=== PATIENT | male | born 1985 | race Hispanic/Latino ===

== ENCOUNTER 2016-11-10 16:26 | Emergency (ER) | payer SELFPAY ==
[2016-11-10 17:15] VITALS: BMI 31.1
[2016-11-10 17:22] VITALS: RESP 16; TEMP 98.2
[2016-11-10] MEDS ORDERED: Oxycodone/Acetaminophen 5/325 mg Tab PO STA (17:25)
--- NOTE | 2016-11-10 19:13 | ED PDOC ---
Arrival/HPI - General Chief Complaint: Back Pain Time Seen by Provider: 11/10/16 17:25 Historian: Patient - History of Present Illness Narrative History of Present Illness (Text): 11/10/16 31-year-old male presents today with a 3 day history of right-sided neck pain. Patient states 3 days ago he woke up with pain to the right side of the neck. Patient states he took a Motrin but the pain did not resolve. Patient states over the past few days the neck pain has been worsening to the point where he is unable to turn his head without pain. He denies chest pain. Denies recent trauma or injury. 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 No vomiting or diarrhea. Patient denies numbness weakness or tingling in the extremities. No other complaints Past Medical History - Provider Review Nursing Documentation Reviewed: Yes - Travel History Have you recently traveled outside [place] w/in the past 3 mons?: No - Infectious Disease Hx of Infectious Diseases: None - Tetanus Immunization Tetanus Immunization: Unknown - Cardiac Hx Cardiac Disorders: No - Pulmonary Hx Respiratory Disorders: Yes Hx Asthma: Yes - Neurological Hx Neurological Disorder: No - HEENT Hx HEENT Disorder: No - Renal Hx Renal Disorder: No - Endocrine/Metabolic Hx Endocrine Disorders: No - Hematological/Oncological Hx Blood Disorders: No - Integumentary Hx Dermatological Disorder: No - Musculoskeletal/Rheumatological Hx Musculoskeletal Disorders: No - Gastrointestinal Hx Gastrointestinal Disorders: No - Genitourinary/Gynecological Hx Genitourinary Disorders: No - Psychiatric Hx Psychophysiologic Disorder: Yes (PTSD) Hx Anxiety: Yes Hx Post Traumatic Stress Disorder: Yes Hx Substance Use: No (Steroids) Family/Social History - Physician Review Nursing Documentation Reviewed: Yes Family/Social History: Unknown Family HX Smoking Status: Never Smoked Hx Alcohol Use: Yes Frequency of alcohol use: Socially Hx Substance Use: No (Steroids) Allergies/Home Meds Allergies/Adverse Reactions: Allergies No Known Allergies Allergy (Verified 11/10/16 17:15) Home Medications: Home Meds Medication Instructions Recorded Confirmed clonazePAM [Klonopin] 0.25 mg PO PRN PRN 07/27/16 11/10/16 Review of Systems - Review of Systems Constitutional: absent: Fatigue, Fevers ENT: absent: Sinus Congestion Respiratory: absent: SOB, Cough Cardiovascular: absent: Chest Pain, Palpitations Gastrointestinal: absent: Abdominal Pain, Nausea, Vomiting Genitourinary Male: absent: Dysuria, Frequency Musculoskeletal: Back Pain, Neck Pain. absent: Arthralgias Skin: absent: Rash, Pruritis Neurological: absent: Headache, Dizziness Physical Exam Vital Signs Reviewed: Yes Vital Signs Temp Pulse Resp BP Pulse Ox 11/10/16 19:26 78 16 126/80 96 11/10/16 17:51 97/52 L 11/10/16 17:16 98.2 F 77 16 97 Temperature: Afebrile Blood Pressure: Normal Pulse: Regular Respiratory Rate: Normal Appearance: Positive for: Well-Appearing, Non-Toxic, Uncomfortable Pain Distress: None Mental Status: Positive for: Alert and Oriented X 3 - Systems Exam Head: Present: Atraumatic Mouth: Present: Moist Mucous Membranes Neck: Present: Paraspinal Tenderness (Positive right sided paraspinal tenderness and right-sided trapezius tenderness. ). No: Normal Range of Motion , Meningeal Signs, MIDLINE TENDERNESS Respiratory/Chest: Present: Clear to Auscultation, Good Air Exchange. No: Respiratory Distress, Accessory Muscle Use Cardiovascular: Present: Regular Rate and Rhythm, Normal S1, S2. No: Murmurs Upper Extremity: Present: Normal Inspection, Normal ROM Neurological: Present: GCS=15, Motor Func Grossly Intact, Normal Sensory Function, Gait Normal Skin: Present: Warm, Dry, Normal Color. No: Rashes Psychiatric: Present: Alert, Oriented x 3 Medical Decision Making ED Course and Treatment: 11/10/16 19:14 Patient nontoxic well-appearing in no distress with stable vital signs. Toradol Flexeril and Percocet given Patient reassessment: Feeling better with medications ambulating with a steady gait. Patient turning neck much better. Muscle strength 5 out of 5 bilaterally. I have looked the patient up in the [employer] aware website. I have advised the patient that Percocet can cause addiction/drowsiness. I advised to followup with the orthopedist within the next 2 days. Return if symptoms worsen persist or new symptoms develop Patient verbalizes understanding of discharge instructions and need for immediate followup. Impression: Neck pain, strain Motrin every 6 hours as needed for pain Flexeril one tablet every 8 hours as needed for muscle spasms: May cause drowsiness percocet:one tablet every 6 hours as needed for moderate to severe pain: May cause drowsiness Followup with the orthopedist within the next 2 days Followup with primary care physician within the next 2 days Return if symptoms worsen persist or if new symptoms develop - Medication Orders Current Medication Orders: Discontinued Medications Cyclobenzaprine HCl (Flexeril) 10 mg PO STAT STA Stop: 11/10/16 17:26 Last Admin: 11/10/16 17:40 Dose: 10 MG Ketorolac Tromethamine (Toradol) 60 mg IM STAT STA Stop: 11/10/16 17:26 Last Admin: 11/10/16 17:40 Dose: 60 MG IM Administration Charges Document 11/10/16 17:40 MD (Rec: 11/10/16 17:40 [id number]) Charges for Administration # of IM Administrations 1 Oxycodone/Acetaminophen (Percocet 5/325 Mg Tab) 1 tab PO STAT STA Stop: 11/10/16 17:26 Last Admin: 11/10/16 17:40 Dose: 1 TAB Disposition/Present on Arrival - Present on Arrival Any Indicators Present on Arrival: No History of DVT/PE: No History of Uncontrolled Diabetes: No Urinary Catheter: No History of Decub. Ulcer: No History Surgical Site Infection Following: None - Disposition Have Diagnosis and Disposition been Completed?: Yes Diagnosis: Neck pain Disposition: HOME/ ROUTINE Disposition Time: 18:30 Patient Plan: Discharge Condition: GOOD Discharge Instructions (ExitCare): Muscle Spasm (ED) Additional Instructions: Motrin every 6 hours as needed for pain Flexeril one tablet every 8 hours as needed for muscle spasms: May cause drowsiness Percocet; one tablet every 6 hours as needed for moderate to severe pain: May cause drowsiness Followup with the orthopedist within the next 2 days Followup with primary care physician within the next 2 days Return if symptoms worsen persist or if new symptoms develop Prescriptions: Cyclobenzaprine [Cyclobenzaprine HCl] 10 mg PO Q8 #10 tab Ibuprofen [Motrin] 600 mg PO Q6H PRN #20 tab PRN Reason: pain/fever reduction oxyCODONE/Acetaminophen [Percocet 5/325 mg Tab] 1 tab PO Q6H PRN #10 tab PRN Reason: moderate to severe pain Referrals: Temo Chavez MD [Primary Care Provider] - Follow up with primary Chris Roe MD [Staff Provider] - Follow up with primary Forms: WORK NOTE
[2016-11-10 19:26] VITALS: BP 126/80; PULSE 78; O2SAT 96
== END 2016-11-10 19:32 | disposition home or self-care (01) ==
LOC: ED 16:26
DX: M54.2 Cervicalgia (principal)
CPT/HCPCS: 96372; 99283; J1885

== ENCOUNTER 2016-11-22 17:06 | Emergency (ER) | payer SELFPAY ==
[2016-11-22 17:07] VITALS: BMI 31.1
--- NOTE | 2016-11-22 17:27 | ED PDOC ---
Arrival/HPI - General Chief Complaint: Male Genitourinary Time Seen by Provider: 11/22/16 17:26 Historian: Patient - History of Present Illness Narrative History of Present Illness (Text): 11/22/16 17:27 31 y/o male, here for the prophylatic treatment for gonorrhea and chlamydia as his gf just told him that she has it. Pt. has unprotected sex with the girlfriend, asymptomatic at this point, no nausea or vomiting, no abdominal or penile discharge, no dizziness, no night sweat, no weight loss, no skin discoloration or change in energy level, no other medical or psychological complaints. Past Medical History - Provider Review Nursing Documentation Reviewed: Yes - Infectious Disease Hx of Infectious Diseases: None - Tetanus Immunization Tetanus Immunization: Unknown - Cardiac Hx Cardiac Disorders: No - Pulmonary Hx Respiratory Disorders: Yes Hx Asthma: Yes - Neurological Hx Neurological Disorder: No - HEENT Hx HEENT Disorder: No - Renal Hx Renal Disorder: No - Endocrine/Metabolic Hx Endocrine Disorders: No - Hematological/Oncological Hx Blood Disorders: No - Integumentary Hx Dermatological Disorder: No - Musculoskeletal/Rheumatological Hx Musculoskeletal Disorders: No - Gastrointestinal Hx Gastrointestinal Disorders: No - Genitourinary/Gynecological Hx Genitourinary Disorders: No - Psychiatric Hx Psychophysiologic Disorder: Yes (PTSD) Hx Anxiety: Yes Hx Post Traumatic Stress Disorder: Yes Hx Substance Use: No (Steroids) Family/Social History - Physician Review Nursing Documentation Reviewed: Yes Family/Social History: Unknown Family HX Smoking Status: Never Smoked Hx Alcohol Use: Yes Frequency of alcohol use: Socially Hx Substance Use: No (Steroids) Allergies/Home Meds Allergies/Adverse Reactions: Allergies No Known Allergies Allergy (Verified 11/22/16 17:19) Home Medications: Home Meds Medication Instructions Recorded Confirmed clonazePAM [Klonopin] 0.25 mg PO PRN PRN 07/27/16 11/22/16 Review of Systems - Review of Systems Constitutional: absent: Fatigue, Fevers Eyes: absent: Vision Changes ENT: absent: Hearing Changes Respiratory: absent: Cough, Sputum Cardiovascular: absent: Chest Pain Gastrointestinal: absent: Abdominal Pain, Nausea, Vomiting Musculoskeletal: absent: Arthralgias, Back Pain Skin: absent: Rash, Pruritis, Skin Lesions, Laceration, Abscess, Ulcer, Cellulitis Neurological: absent: Headache, Dizziness, Focal Weakness, Gait Changes, Speech Changes, Facial Droop, Disequilibrium, Seizure Physical Exam Vital Signs Reviewed: Yes Vital Signs Temp Pulse Resp BP Pulse Ox 11/22/16 17:19 98.6 F 74 16 119/74 97 Temperature: Afebrile Blood Pressure: Normal Pulse: Regular Respiratory Rate: Normal Appearance: Positive for: Well-Appearing, Non-Toxic, Comfortable Pain Distress: None Mental Status: Positive for: Alert and Oriented X 3 - Systems Exam Head: Present: Atraumatic, Normocephalic Pupils: Present: PERRL Nose (External): Present: Atraumatic. No: Abrasion, Contusion Neck: Present: Normal Range of Motion, Trachea Midline Respiratory/Chest: Present: Clear to Auscultation, Good Air Exchange, Respiratory Distress Cardiovascular: Present: Regular Rate and Rhythm, Normal S1, S2. No: Murmurs Abdomen: Present: Normal Bowel Sounds. No: Tenderness, Distention Neurological: Present: GCS=15, Speech Normal, Motor Func Grossly Intact, Gait Normal, Memory Normal Skin: Present: Warm, Dry, Normal Color Psychiatric: Present: Alert, Oriented x 3, Normal Insight, Normal Concentration Medical Decision Making ED Course and Treatment: 11/22/16 17:27 -rocephin and azithromycin ordered. -Pt. refused STD testing and refused HIV testing. -Discharge home with education on to notify all sexual partners for STD testing and follow up with your own pmd within 2 days, return to the ER for any new or worsening signs or symptoms. - Medication Orders Current Medication Orders: Azithromycin (Zithromax) 1,000 mg PO STAT STA PRN Reason: Protocol Stop: 11/22/16 17:29 Ceftriaxone Sodium (Rocephin) 250 mg IM STAT STA PRN Reason: Protocol Stop: 11/22/16 17:29 - PA / TIME BUYER / Resident Statement /DO has reviewed & agrees with the documentation as recorded. Disposition/Present on Arrival - Present on Arrival Any Indicators Present on Arrival: No History of DVT/PE: No History of Uncontrolled Diabetes: No Urinary Catheter: No History of Decub. Ulcer: No History Surgical Site Infection Following: None - Disposition Have Diagnosis and Disposition been Completed?: Yes Diagnosis: Possible exposure to STD Disposition: HOME/ ROUTINE Disposition Time: 17:27 Patient Plan: Discharge Condition: GOOD Additional Instructions: Discharge home with education on to notify all sexual partners for STD testing and follow up with your own pmd within 2 days, return to the ER for any new or worsening signs or symptoms. Referrals: Quincy Jacinto MD [Staff Provider] - [place] up with primary [facility] [place] [facility] [place] - Follow up with primary Forms: WORK NOTE
[2016-11-22] MEDS ORDERED: cefTRIAXone (Rocephin) 250 mg Inj IM STA (17:28)
[2016-11-22] MEDS ORDERED: Lidocaine 1% Inj (20ml) ONE (17:50)
[2016-11-22 18:26] VITALS: BP 124/85; PULSE 75; RESP 20; TEMP 98; O2SAT 100
== END 2016-11-22 18:28 | disposition home or self-care (01) ==
LOC: ED 17:06
DX: Z04.8 Encounter for examination and observation for other specified reasons (principal)
CPT/HCPCS: 96372; 99283; J0696

== ENCOUNTER 2017-07-28 20:24 | Emergency (ER) | payer SELFPAY ==
[2017-07-28 21:18] VITALS: RESP 18; TEMP 97.9; BMI 31.9
--- NOTE | 2017-07-28 21:36 | ED PDOC ---
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 Patient stated his right pectoris muscle may be tear, and it is very painful. Patient denies sob, cp, abdominal pain, weakness, paresthesias, or abnormal gait. Denies shoulder pain, neck pain, or back pain. Time/Duration: Prior to Arrival Quality: Aching Context: Home Past Medical History - Provider Review Nursing Documentation Reviewed: Yes - Infectious Disease Hx of Infectious Diseases: None - Tetanus Immunization Tetanus Immunization: Unknown - Cardiac Hx Cardiac Disorders: No - Pulmonary Hx Respiratory Disorders: Yes Hx Asthma: Yes - Neurological Hx Neurological Disorder: No - HEENT Hx HEENT Disorder: No - Renal Hx Renal Disorder: No - Endocrine/Metabolic Hx Endocrine Disorders: No - Hematological/Oncological Hx Blood Disorders: No - Integumentary Hx Dermatological Disorder: No - Musculoskeletal/Rheumatological Hx Musculoskeletal Disorders: No - Gastrointestinal Hx Gastrointestinal Disorders: No - Genitourinary/Gynecological Hx Genitourinary Disorders: No - Psychiatric Hx Psychophysiologic Disorder: Yes (PTSD) Hx Anxiety: Yes Hx Post Traumatic Stress Disorder: Yes Hx Substance Use: No (Steroids) Family/Social History - Physician Review Nursing Documentation Reviewed: Yes Family/Social History: Other (noncontributory) Smoking Status: Never Smoked Hx Alcohol Use: Yes Hx Substance Use: No (Steroids) Allergies/Home Meds Allergies/Adverse Reactions: Allergies No Known Allergies Allergy (Verified 07/28/17 21:18) Home Medications: Home Meds Medication Instructions Recorded Confirmed clonazePAM [Klonopin] 0.5 mg PO PRN PRN 07/27/16 07/28/17 Review of Systems - Review of Systems Constitutional: Normal. absent: Fatigue, Weight Change, Fevers Eyes: Normal ENT: Normal Respiratory: Normal. absent: SOB, Cough, Wheezing Cardiovascular: Normal. absent: Chest Pain, Palpitations Gastrointestinal: Normal. absent: Abdominal Pain, Diarrhea, Nausea, Vomiting Genitourinary Male: Normal Musculoskeletal: Other (see hpi) Skin: Normal Neurological: Normal Endocrine: Normal Hemo/Lymphatic: Normal Psychiatric: Normal Physical Exam Vital Signs Temp Pulse Resp BP Pulse Ox 12/19/17 23:31 72 18 122/79 99 07/28/17 21:18 97.9 F 60 18 130/90 98 07/28/17 21:16 97.9 F 60 18 130/90 98 Temperature: Afebrile Blood Pressure: Normal Pulse: Regular Respiratory Rate: Normal Appearance: Positive for: Well-Appearing, Non-Toxic, Comfortable Pain Distress: None Mental Status: Positive for: Alert and Oriented X 3 - Systems Exam Head: Present: Atraumatic, Normocephalic Pupils: Present: PERRL Extroacular Muscles: Present: EOMI Conjunctiva: Present: Normal Mouth: Present: Moist Mucous Membranes Neck: Present: Normal Range of Motion Respiratory/Chest: Present: Clear to Auscultation, Good Air Exchange, Other ((+ ) right upper pectoris muscle tenderness with ecchymosis located near right axilla. No shoulder or neck tenderness.). No: Respiratory Distress, Accessory Muscle Use Cardiovascular: Present: Regular Rate and Rhythm, Normal S1, S2. No: Murmurs Abdomen: Present: Normal Bowel Sounds. No: Tenderness, Distention, Peritoneal Signs Back: Present: Normal Inspection Upper Extremity: Present: Normal Inspection, Normal ROM, NORMAL PULSES, Capillary Refill < 2s. No: Cyanosis, Edema Lower Extremity: Present: Normal Inspection, Normal ROM. No: Edema Neurological: Present: GCS=15, CN II-XII Intact, Speech Normal, Normal 2Pt Descrimination (b/l UE) Skin: Present: Warm, Dry, Normal Color. No: Rashes Psychiatric: Present: Alert, Oriented x 3, Normal Insight, Normal Concentration Medical Decision Making ED Course and Treatment: 07/28/17 23:08 Ct CRAWFORD stated patient continues with chest wall pain despite Toradol IM. She stated patient requesting stronger pain medication. Dr. Gore recommended Percocet PO. Ct nurse also stated patient is refusing CT chest. He prefers leaving hospital and contacting his orthopedist tomorrow. Patient denies SOB, or abdominal pain. Patient wants o sign AMA. Leaving Against Medical Advice (AMA): This patient is choosing to leave against medical advice. The EP has personally explained to the pt that choosing to do so may result in permanent bodily harm or . The EP discussed at great length that without further evaluation and monitoring there may be unforeseen circumstances and/or deterioration causing permanent bodily harm or as a result of their choice. The pt verbalized these risks back to the physician in laymans terms. The pt is alert, oriented, and shows the mental capacity to make clear decisions regarding the pts health care at this time. The pt continues to wish to leave against medical advice. In light of the pts decision to leave AMA, follow-up has been recommended and the pt is aware of the importance of following up as instructed. The pt has been advised that they should return to the ED immediately if they change their mind at any time, or if his condition begins to change or worsen in any way. - Medication Orders Current Medication Orders: Discontinued Medications Ketorolac Tromethamine (Toradol) 30 mg IM STAT STA Stop: 07/28/17 21:37 Last Admin: 07/28/17 22:08 Dose: 30 mg MAR Pain Assessment Document 07/28/17 22:08 YP (Rec: 07/28/17 22:08 YP [id number]) Pain Reassessment Is this a pain reassessment? Yes Sleep Is patient sleeping during reassessment? No Presence of Pain Presence of Pain Yes IM Administration Charges Document 07/28/17 22:08 YP (Rec: 07/28/17 22:08 YP [id number]) Injection Site MAR Injection Site Left Deltoid Charges for Administration # of IM Administrations 1 Oxycodone/Acetaminophen (Percocet 5/325 Mg Tab) 1 tab PO STAT STA Stop: 07/28/17 23:07 Last Admin: 07/28/17 23:30 Dose: 1 tab MAR Pain Assessment Document 07/28/17 23:30 YP (Rec: 07/28/17 23:30 YP [id number]) Pain Reassessment Is this a pain reassessment? Yes Sleep Is patient sleeping during reassessment? No Presence of Pain Presence of Pain Yes Disposition/Present on Arrival - Present on Arrival Any Indicators Present on Arrival: No History of DVT/PE: No History of Uncontrolled Diabetes: No Urinary Catheter: No History of Decub. Ulcer: No History Surgical Site Infection Following: None - Disposition Have Diagnosis and Disposition been Completed?: Yes Diagnosis: Chest wall pain Disposition: AGAINST MEDICAL ADVICE Disposition Time: 23:09 Condition: UNKNOWN Referrals: [facility] Profile Req, [Non-Staff] - Follow up with primary Marleny Groves MD [Staff Provider] - Follow up with primary Forms: TIME PLUS Q (Prydeinig)
[2017-07-28] MEDS ORDERED: Oxycodone/Acetaminophen 5/325 mg Tab PO STA (23:06)
[2017-07-28 23:32] VITALS: BP 122/79; PULSE 72; O2SAT 99
== END 2017-07-28 23:33 | disposition left against medical advice (07) ==
LOC: ED 20:24
DX: R07.89 Other chest pain (principal)
CPT/HCPCS: 96372; 99284; J1885

== ENCOUNTER 2017-08-21 01:14 | Emergency (ER) | payer BC ==
[2017-08-21 01:14] VITALS: BMI 31.9
== END 2017-08-21 01:48 | disposition left against medical advice (07) ==
LOC: ED 01:14
DX: Z02.89 Encounter for other administrative examinations (principal)